=== PATIENT | male | born 1970 | race African-American/Black ===

== ENCOUNTER 2021-01-05 11:07 | Emergency (ER) | payer SELFPAY ==
[~2021-01-05] VITALS: Ht 182.9 cm; Wt 102.1 kg
[2021-01-05 12:13] LABS: STREPTOCOCCUS GRP A ANTIGEN POSITIVE (NEGATIVE)
[2021-01-05 12:19] LABS: INFLUENZAE A&B ANTIGEN (RAPID) NEGATIVE (NEGATIVE)
[2021-01-05] MEDS ORDERED: VENTOLIN HFA18 GM INH (12:52)
[2021-01-05] MEDS ORDERED: AZITHROMYCIN250 MG PO (12:52)
[2021-01-05] MEDS ORDERED: PREDNISONE20 MG PO (12:52)
== END 2021-01-05 13:09 | disposition home or self-care (01) ==
LOC: ER 11:09
DX: R05 Cough (principal); J02.0 Streptococcal pharyngitis; R73.9 Hyperglycemia, unspecified; Z20.822 Contact with and (suspected) exposure to COVID-19
CPT/HCPCS: 36415; 71045; 82948; 83518; 87400; 99284; U0002